=== PATIENT | female | born 1965 | race Caucasian/White ===

== ENCOUNTER → 2016-11-27 | Day surgery (SDC) | payer OTHER ==
[~2016-11-27] VITALS: Ht 147.3 cm; Wt 51.7 kg
[~2016-11-27] MED LIST: ALPRAZOLAM0.5 M4 PO; BENTYL10 M1 PO; CARAFATE1 GM/10 M1 PO; KEFLEX500 MG PO; NORCO 325 MG-51 TAB PO; OMEPRAZOLE40 M1 PO; PERCOCET 5-3251 EACH PO; ZOFRAN4 M2 PO
--- NOTE | 2016-11-27 11:07 | Operative Report ---
Operative/Inv Procedure Report Surgery Date: 11/27/16 Name of Procedure: Laparoscopy aspiration of hydrosalpinx fluid on the left aspiration of left ovarian cyst Pre-Operative Diagnosis: Pelvic mass pelvic pain Post-Operative Diagnosis: Left ovarian cyst left hydrosalpinx Estimated Blood Loss: 50ml to 100ml Surgeon/Pickers Material Handlers: FILIBERTO OBRIEN MD Anesthesia: general endotracheal tube Operative/Procedure Note Note: Patient was taken the operating room placed supine position after adequate anesthesia patient placed in dorsolithotomy position the vagina prepped draped fashion bladder was catheterized examination under anesthesia performed an Allis clamp and a sponge was placed into the vagina to do no the vagina is the patient had had a hysterectomy on at this point the surgeon regowned and gloved at the level of the umbilicus stab incision was made to allow for the entry of Veress needle the abdomen was inserted approximately 4 L of CO2 to liver edge dullness which point the Veress needle was removed the on incision was extended to allow for a 10 mm trocar through that sheath laparoscope was placed 2 fingerbreadths of symptoms pubis the skin was cut a stab incision was made to allow for a 5 mm trocar on at this point a peritoneal washings were obtained using normal saline the specimen was sent to pathology on at this point J-hook was used to open the hydrosalpinx and destroyed the wall hydrosalpinx the fluid was sent to pathology I the left ovarian cyst a stab incision was made with a needle I the fluid was removed and cyst was destroyed using a J-hook hemostasis was apparent pictures were taken maximal CO2 was removed from the abdomen once was removed and the abdomen under direct visualization the incision at the umbilicus was oversewn using 0 for the fascia and interrupted were used on both skin incisions of 30 Marcaine was injected underneath both incisions sterile dressings were applied the patient was awakened from anesthesia all oral instruments removed from the vagina Morejon was removed the patient was returned spine position she was awakened from anesthesia and transferred recovery room awake alert with counts correct
== END ==
LOC: STS 01:55
DX: N70.11 Chronic salpingitis (principal); N83.202 Unspecified ovarian cyst, left side
CPT/HCPCS: 88305; J0131; J0694; J2250

== ENCOUNTER 2017-01-09 18:31 | Emergency (ER) | payer OTHER ==
[~2017-01-09] VITALS: Ht 147.3 cm; Wt 49.9 kg
[~2017-01-09 18:31] MED LIST changes: -BENTYL10 M1 PO; -CARAFATE1 GM/10 M1 PO; -OMEPRAZOLE40 M1 PO; -PERCOCET 5-3251 EACH PO; -ZOFRAN4 M2 PO
--- NOTE | 2017-01-09 18:50 | ED GI/GU/ABDOMINAL COMPLAINT ---
History of Present Illness General Chief Complaint: Abdominal Pain/Flank Pain Stated Complaint: ABD PAIN X2 DAYS Source: patient, old records Exam Limitations: no limitations Vital Signs & Intake/Output Vital Signs & Intake/Output Vital Signs Date Time Temp Pulse Resp B/P Pulse O2 O2 Flow FiO2 Ox Delivery Rate 01/09 2121 96.9 64 16 118/68 98 Room Air 01/099 98 Room Air 01/09 1844 98.7 61 16 120/81 98 Room Air Room Air Allergies Coded Allergies: NO KNOWN ALLERGIES (01/09/17) Triage Note: PT TO TRIAGE WITH EPIGASTRIC BURNING FOR 2 DAYS. STATES SHE HAS A HX OF BLEEDING ULCERS. DENIES ANY BLEEDING OR DARK STOOLS. STATES PAIN BECOMES WORSE AFTER EATING WITH CONCURRENT VOMITING. Triage Nurses Notes Reviewed? yes ? n Is pt currently ? No HPI: Patient is a 51-year-old female presents complaining of epigastric pain onset on Thursday. Pain is a sharp pain, currently severe, radiates to her back. Worsens with any oral intake. Last oral intake was this morning, patient had a piece of toast which severely exacerbated her pain. Associated nausea and vomiting. Patient reports that she had intractable vomiting previously and had an endoscopy which showed an ulcer. Patient denies hematemesis, hematochezia, melena, fevers, chills. (FRANKO AUGUSTIN,MAEGAN) Reconcile Medications Alprazolam 0.5 MG TABLET 1 TAB PO AD ANXIETY (Reported) Dicyclomine Hydrochloride (Bentyl) 10 MG CAPSULE 1 CAP PO TID PUD Omeprazole 40 MG CAPSULE.DR 1 CAP PO DAILY ACID REFLUX Ondansetron HCl (Zofran) 4 MG TABLET 1 TAB PO Q6-8P PRN NAUSEA Oxycodone HCl/Acetaminophen (Percocet 5-325 MG Tablet) 5 MG-325 MG TABLET 1-2 TAB PO Q6P PRN PAIN Sucralfate (Carafate) 1 GRAM/10 ML ORAL.SUSP 10 ML PO 4 TIMES/DAY PUD 1 hour before food and bedtime (SOCORRO WU,EVAN Cheung) Past History Travel History Traveled to [place] past 21 day No Medical History Any Pertinent Medical History? see below for history Neurological: NONE EENT: NONE Cardiovascular: NONE Respiratory: NONE Gastrointestinal: GASTRIC ULCERS Hepatic: NONE Renal: NONE Musculoskeletal: NONE Psychiatric: NONE Endocrine: NONE Blood Disorders: NONE Cancer(s): NONE Surgical History Surgical History: nephrectomy Psychosocial History What is your primary language Turkmen Tobacco Use: Never used ETOH Use: denies use Illicit Drug Use: denies illicit drug use Family History Hx Contributory? No (MAEGAN FISHER) Review of Systems Review of Systems Constitutional: Denies: chills, fever. EENTM: Reports: no symptoms. Respiratory: Denies: cough, short of breath. Cardiovascular: Denies: chest pain. GI: Reports: see HPI. Genitourinary: Reports: no symptoms. Musculoskeletal: Reports: back pain. Skin: Reports: no symptoms. Neurological/Psychological: Reports: no symptoms. Hematologic/Endocrine: Reports: no symptoms. Immunologic/Allergic: Reports: no symptoms. (MAEGAN FISHER) Physical Exam Physical Exam General Appearance: alert, awake Head: atraumatic, normal appearance Eyes: Bilateral: normal appearance, PERRL, EOMI. Ears, Nose, Throat, Mouth: hearing grossly normal, moist mucous membrane Neck: normal inspection, supple, full range of motion Respiratory: normal breath sounds, chest non-tender, no respiratory distress, lungs clear Cardiovascular: regular rate/rhythm Gastrointestinal: normal bowel sounds, soft, POSITIVE Baca SIGN, EPIGASTRIC TENDERNESS. nEGATIVE mCbURNEY'S POINT TENDERNESS Back: normal inspection, normal range of motion Extremities: normal range of motion Neurologic/Psych: no motor/sensory deficits, awake, alert, oriented x 3, normal mood/affect Skin: intact, normal color, warm/dry Core Measures ACS in differential dx? No Severe Sepsis Present: No Septic Shock Present: No (MAEGAN FISHER) Progress Differential Diagnosis: AAA, AMI, bowel obstruction, cholecystitis, diverticulitis, gastritis, hepatitis, hernia, ischemic bowel, inflamm bowel dis, kidney stone, ovarian cyst, ovarian torsion, pancreatitis, PUD/GERD, perforated viscous, SBO, UTI/pyelo Diagnostic Imaging: Viewed by Me: CT Scan, Ultrasound. Discussed w/RAD: Ultrasound. Radiology Impression: PATIENT: SHALOM MILLIGAN PRESENT AGE: 51 PATIENT ACCOUNT NO: [id number] : 66 LOCATION: [facility] ORDERING PHYSICIAN: MAEGAN AUGUSTIN SERVICE DATE: 01/09/17 EXAM TYPE: US - US-LIMITED ABDOMEN EXAMINATION: US ABDOMEN LIMITED CLINICAL INFORMATION: Epigastric and right upper quadrant pain and tenderness. COMPARISON: None TECHNIQUE: CT 07/02/2013 FINDINGS: PANCREAS: The visualized proximal portion of the pancreas is unremarkable. The distal portion is obscured secondary to overlying bowel gas. LIVER: The liver demonstrates normal size, contour and echogenicity. No focal lesion or intrahepatic biliary duct dilatation. GALLBLADDER: The gallbladder is physiologically distended without evidence of stones, sludge, polyps, wall thickening or pericholecystic fluid. Negative sonographic Baca sign. COMMON BILE DUCT: Normal in caliber measuring 0.3 cm in diameter. RIGHT KIDNEY: No hydronephrosis. No renal calculi or focal parenchymal lesions. The kidney measures 10.7 cm in maximum dimension. FREE FLUID: None. IMPRESSION: No abnormality demonstrated. DICTATED BY: ELIZABETH JONES MD DATE/ TIME DICTATED:01/09/172100 TRIAGE CLINICIAN:DOT DATE/TIME TRANSCRIBED: 01/09/172100 CONFIDENTIAL, DO NOT COPY WITHOUT APPROPRIATE AUTHORIZATION. < Electronically signed in Other Vendor System> SIGNED BY: ELIZABETH JONES MD 01/09/172106, PATIENT: SHALOM MILLIGAN PRESENT AGE: 51 PATIENT ACCOUNT NO: [id number] : 66 LOCATION: [facility] ORDERING PHYSICIAN: MAEGAN AUGUSTIN SERVICE DATE: 01/09/17 EXAM TYPE: CAT - CT ABD & PELVIS W/O IV CONTRAS EXAMINATION: CT ABDOMEN AND PELVIS WITHOUT CONTRAST CLINICAL INFORMATION: Right upper quadrant and epigastric pain radiating to the back. COMPARISON: Abdomen ultrasound from 01/09/2017. CT of abdomen pelvis from 07/02/2013. TECHNIQUE: Multidetector volumetric imaging was performed from the superior aspect of the liver through the pubic symphysis. Sagittal and coronal reformatted images were obtained on the technologist's workstation. DLP: 239 mGy -cm FINDINGS: LUNG BASES: Minimal atelectasis in dependent aspect of each lower lobe. LIVER, GALLBLADDER, AND BILIARY TREE: The liver has normal in size, shape, and attenuation. No focal hepatic lesion or biliary ductal dilatation. The gallbladder is unremarkable. PANCREAS: Unremarkable. SPLEEN: Unremarkable. ADRENAL GLANDS: Unremarkable. KIDNEYS, URETERS AND BLADDER: Left kidney is surgically absent. There is no soft tissue mass within the left retroperitoneum. The right kidney has normal size, cortical thickness and attenuation. No nephrolithiasis, hydronephrosis or perinephric edema. The right ureter and urinary bladder unremarkable. GASTROINTESTINAL TRACT: Stomach is unremarkable. Loops of bowel are normal in size. Appendix is normal. No evidence of acute inflammation or obstruction along the gastrointestinal tract. No ascites or pneumoperitoneum. ABDOMINAL WALL: Unremarkable. LYMPH NODES: No pathologic sized lymph nodes within the abdomen or pelvis. VASCULAR: Abdominal aorta is normal in caliber. No retroperitoneal hematoma. PELVIC VISCERA: The uterus is absent. No adnexal masses or pelvic free fluid. OSSEOUS STRUCTURES: Unremarkable. IMPRESSION: 1. No acute imaging abnormalities within the abdomen or pelvis. 2. Status post left nephrectomy; no soft tissue mass or hematoma within the retroperitoneum. DICTATED BY: CHANELLE ADAMES MD DATE/TIME DICTATED:01/09/172153 TRIAGE CLINICIAN:DOT DATE/TIME TRANSCRIBED:01/09/172153 CONFIDENTIAL, DO NOT COPY WITHOUT APPROPRIATE AUTHORIZATION. <Electronically signed in Other Vendor System> SIGNED BY: CHANELLE ADAMES MD 01/09/172203 Initial ED EKG: normal axis, normal intervals, normal p-waves, normal QRS complex, normal sinus rhythm, no ST T wave changes Hand-Off Endorsed To: IDALMIS MCNAIR Endorsed Time: 2141 Pending: CT (MAEGAN FISHER) Plan of Care: Orders Procedure Date/time Status CT ABD & PELVIS W/O IV CONTRAS 01/09 2113 Active LIPASE 01/09 1851 Complete COMPREHENSIVE METABOLIC PANEL 01/09 185 Complete CBC WITHOUT DIFFERENTIAL 01/09 1851 Complete AMYLASE 01/09 1851 Complete EKG 01/09 1844 Active Laboratory Tests 01/09/17 2006: Anion Gap 12, Estimated GFR > 60, BUN/Creatinine Ratio 16.3, Glucose 81, Calcium 9.8, Total Bilirubin 1.2, AST 19, ALT 25, Alkaline Phosphatase 58, Total Protein 7.3, Albumin 4.3, Globulin 3.0, Albumin/Globulin Ratio 1.4, Amylase 81, Lipase 125, CBC w Diff NO MAN DIFF REQ, RBC 4.70, MCV 85.0, MCH 28.8, RDW 13.5, MPV 7.9 , Gran % 71.1, Lymphocytes % 19.7 L, Monocytes % 5.4, Eosinophils % 2.6, Basophils % 1.2, Absolute Granulocytes 6.8 H, Absolute Lymphocytes 1.9, Absolute Monocytes 0.5, Absolute Eosinophils 0.2, Absolute Basophils 0.1, PUBS MCHC 33.9 01/09/2017 8:42:17 PM: Patient reports pain continues to be severe. Discussed results of labs with patient. Awaiting results of ultrasound. 2109: Results of ultrasound discussed with patient. Patient continues with pain. CT scan ordered. 2139: Signed out to Idalmis Jeffrey PA-C with CT scan pending (MAEGAN FISHER) Departure Departure Condition: Stable Departure Forms: Customer Survey General Discharge Information (MAEGAN FISHER) Departure Disposition: HOME OR SELF CARE Clinical Impression Primary Impression: Abdominal pain Referrals: BRIGETTE ESTEVEZ (PCP/Family) HIRO GEORGES MD Additional Instructions: Take omeprazole as prescribed and Percocet for pain. Follow-up with GI doctor provided. You will will require a upper endoscopy. Return if any other concerns worsening symptoms. Please go over all results of today's visit with your primary care doctor. Contact your primary care doctor to let them know you were here in the emergency room. There may be nonspecific findings which may not be related to your visit today here in the emergency room but may require further evaluation and chronic monitoring by your primary care doctor. If you had a laceration today the chance of foreign body always remains. You should follow-up with your primary care doctor for recheck in 3-5 days for a wound check. If you had an x-ray done there is a chance that a fracture could have been missed on initial read and you should follow-up with your primary care doctor for repeat x-rays if symptoms persist. If your blood pressure was elevated here in the emergency room please have rechecked by her primary care doctor within the next 48 hours by your primary care doctor. If you were prescribed a narcotic here in the emergency room or any type of controlled substances you're not allowed to drive while taking this medication or operate any type of heavy machinery. Narcotics can make you feel lightheaded dizziness nausea and can cause constipation. You may need to pickle pumper a stool softener. Thank you for choosing [facility] emergency room. Please return to the emergency room immediately if you have any other concerns worsening of symptoms. Prescriptions: Current Visit Scripts Oxycodone HCl/Acetaminophen (Percocet 5-325 MG Tablet) 1-2 TAB PO Q6P PRN PAIN #20 TAB Omeprazole 1 CAP PO DAILY #60 CAP (IDALMIS MCNAIR) PA/HOG STOMACH PREPARER Co-Sign Statement Statement: ED Attending supervision documentation- [] I saw and evaluated the patient. I have also reviewed all the pertinent lab results and diagnostic results. I agree with the findings and the plan of care as documented in the PA's/HOG STOMACH PREPARER's documentation. [x] I have reviewed the ED Record and agree with the PA's/HOG STOMACH PREPARER's documentation. [] Additions or exceptions (if any) to the PAs/HOG STOMACH PREPARER's note and plan are summarized below: [] (SOCORRO WU,EVAN Cheung)
[2017-01-09 20:18] LABS: ABSOLUTE BASOPHIL COUNT 0.1 /CUMM (0.0-0.2); ABSOLUTE EOSINOPHIL COUNT 0.2 /CUMM (0.0-0.7); ABSOLUTE GRANULOCYTE CT 6.8 /CUMM (1.4-6.5); ABSOLUTE LYMPH COUNT 1.9 /CUMM (1.2-3.4); ABSOLUTE MONOCYTE COUNT 0.5 /CUMM (0.10-0.60); BASOPHIL % 1.2 % (0.0-2.0); EOSINOPHIL % 2.6 % (0-5); GRANULOCYTE % 71.1 % (42.2-75.2); HEMATOCRIT 39.9 % (37-47); MEAN CORPUSCULAR HGB 28.8 PG (27.0-31.0); MEAN CORPUSCULAR HGB CONC 33.9 G/DL (33.0-37.0); MEAN PLATELET VOLUME 7.9 FL (7.4-10.4); PLATELET COUNT 293 /CUMM (130-400); RBC DISTRIBUTION WIDTH 13.5 % (11.5-14.5); WHITE BLOOD CELL COUNT 9.5 /CUMM (4.8-10.8)
--- NOTE | 2017-01-09 21:07 | ULTRASOUND REPORT ---
EXAMINATION: US ABDOMEN LIMITED CLINICAL INFORMATION: Epigastric and right upper quadrant pain and tenderness. COMPARISON: None TECHNIQUE: CT 07/02/2013 FINDINGS: PANCREAS: The visualized proximal portion of the pancreas is unremarkable. The distal portion is obscured secondary to overlying bowel gas. LIVER: The liver demonstrates normal size, contour and echogenicity. No focal lesion or intrahepatic biliary duct dilatation. GALLBLADDER: The gallbladder is physiologically distended without evidence of stones, sludge, polyps, wall thickening or pericholecystic fluid. Negative sonographic Baca sign. COMMON BILE DUCT: Normal in caliber measuring 0.3 cm in diameter. RIGHT KIDNEY: No hydronephrosis. No renal calculi or focal parenchymal lesions. The kidney measures 10.7 cm in maximum dimension. FREE FLUID: None. IMPRESSION: No abnormality demonstrated.
[2017-01-09 21:21] VITALS: BP 118/68
--- NOTE | 2017-01-09 22:04 | CT SCAN REPORT ---
EXAMINATION: CT ABDOMEN AND PELVIS WITHOUT CONTRAST CLINICAL INFORMATION: Right upper quadrant and epigastric pain radiating to the back. COMPARISON: Abdomen ultrasound from 01/09/2017. CT of abdomen pelvis from 07/02/2013. TECHNIQUE: Multidetector volumetric imaging was performed from the superior aspect of the liver through the pubic symphysis. Sagittal and coronal reformatted images were obtained on the technologist's workstation. DLP: 239 mGy-cm FINDINGS: LUNG BASES: Minimal atelectasis in dependent aspect of each lower lobe. LIVER, GALLBLADDER, AND BILIARY TREE: The liver has normal in size, shape, and attenuation. No focal hepatic lesion or biliary ductal dilatation. The gallbladder is unremarkable. PANCREAS: Unremarkable. SPLEEN: Unremarkable. ADRENAL GLANDS: Unremarkable. KIDNEYS, URETERS AND BLADDER: Left kidney is surgically absent. There is no soft tissue mass within the left retroperitoneum. The right kidney has normal size, cortical thickness and attenuation. No nephrolithiasis, hydronephrosis or perinephric edema. The right ureter and urinary bladder unremarkable. GASTROINTESTINAL TRACT: Stomach is unremarkable. Loops of bowel are normal in size. Appendix is normal. No evidence of acute inflammation or obstruction along the gastrointestinal tract. No ascites or pneumoperitoneum. ABDOMINAL WALL: Unremarkable. LYMPH NODES: No pathologic sized lymph nodes within the abdomen or pelvis. VASCULAR: Abdominal aorta is normal in caliber. No retroperitoneal hematoma. PELVIC VISCERA: The uterus is absent. No adnexal masses or pelvic free fluid. OSSEOUS STRUCTURES: Unremarkable. IMPRESSION: 1. No acute imaging abnormalities within the abdomen or pelvis. 2. Status post left nephrectomy; no soft tissue mass or hematoma within the retroperitoneum.
[2017-01-09] MEDS ORDERED: OMEPRAZOLE40 M1 PO (22:24)
[2017-01-09] MEDS ORDERED: PERCOCET 5-3251 EACH PO (22:24)
== END 2017-01-09 22:56 ==
LOC: ERH 18:31
PROVIDERS: Physician Assistant
DX: R10.13 Epigastric pain (principal)
CPT/HCPCS: 74176; 93005; 93010; 96374; 96375; 96376; J2405

== ENCOUNTER 2017-01-12 16:49 | Emergency (ER) | payer OTHER ==
[~2017-01-12] VITALS: Ht 147.3 cm; Wt 49.9 kg
[~2017-01-12 16:49] MED LIST changes: +OMEPRAZOLE40 M1 PO; +PERCOCET 5-3251 EACH PO
--- NOTE | 2017-01-12 17:36 | ED GI/GU/ABDOMINAL COMPLAINT ---
History of Present Illness General Chief Complaint: Abdominal Pain/Flank Pain Stated Complaint: WAS HERE FRI FOR ABDOM PAIN-PAIN WORSE Source: patient, old records Exam Limitations: no limitations Vital Signs & Intake/Output Vital Signs & Intake/Output Vital Signs Date Time Temp Pulse Resp B/P Pulse O2 O2 Flow FiO2 Ox Delivery Rate 01/127 97.0 69 20 122/59 98 Room Air 01/12 1948 96.9 61 20 121/60 100 Room Air 01/12 1806 Room Air Room Air 01/12 1659 97.0 66 20 121/84 97 Room Air ED Intake and Output 01/13 0000 01/12 1200 Intake Total 1000 Output Total Balance 1000 Intake, IV 1000 Patient 110 lb Weight Allergies Coded Allergies: NO KNOWN ALLERGIES (01/09/17) Reconcile Medications Alprazolam 0.5 MG TABLET 1 TAB PO AD ANXIETY (Reported) Dicyclomine Hydrochloride (Bentyl) 10 MG CAPSULE 1 CAP PO TID PUD Omeprazole 40 MG CAPSULE.DR 1 CAP PO DAILY ACID REFLUX Ondansetron HCl (Zofran) 4 MG TABLET 1 TAB PO Q6-8P PRN NAUSEA Oxycodone HCl/Acetaminophen (Percocet 5-325 MG Tablet) 5 MG-325 MG TABLET 1-2 TAB PO Q6P PRN PAIN Sucralfate (Carafate) 1 GRAM/10 ML ORAL.SUSP 10 ML PO 4 TIMES/DAY PUD 1 hour before food and bedtime Triage Note: RECEIVED 51 YO FEMALE C/O MID-UPPER TO RIGHT ABDOMINAL PAIN RADIATING TO BACK, STARTED LAST THURSDAY WORSENING WITH NAUSEA AND INTERMITTENT VOMITING. PT WAS HERE THURSDAY FOR SAME AND REFERRED TO GI MD, WHO CANNOT SEE HERE UNTIL THE END OF THE MONTH. Triage Nurses Notes Reviewed? yes ? N Is pt currently ? No Onset: Gradual Duration: getting worse Timing: recent history Severity Numbers: 8 Location: epigastric Radiation: back Activities at Onset: eating HPI: Patient is a 51-year-old female who presents to emergency room with a 6 day history of gradual onset of epigastric pain. Patient was evaluated 3 days ago for similar complaints and she has been complaint of sharp stabbing severe epigastric pain that radiates to her back that worsens with by mouth intake. Patient states that she drinks or eats anything 30 minutes later she vomits it up. Last bowel movement was 2 days ago no blood no melena noted. Patient was evaluated from last emergency room visit with CT scan and blood work and ultrasound of right upper quadrant showing unremarkable acute process in which patient tried to follow up with gastrology however pain was so severe that she presented emergency room. Last Percocet was yesterday patient only use this medication once patient was compliant with the omeprazole prescribed. Denies any fevers chills chest pain and arm pain jaw pain shortness of breath cough hemoptysis leg swelling. Denies any vaginal bleeding vaginal discharge dysuria or hematuria. (HALI WALDROP) Past History Travel History Traveled to [place] past 21 day No Medical History Any Pertinent Medical History? see below for history Neurological: NONE EENT: NONE Cardiovascular: NONE Respiratory: NONE Gastrointestinal: GASTRIC ULCERS Hepatic: NONE Renal: NONE Musculoskeletal: NONE Psychiatric: NONE Endocrine: NONE Blood Disorders: NONE Cancer(s): NONE Surgical History Surgical History: hysterectomy, nephrectomy Psychosocial History What is your primary language Wolof Tobacco Use: Never used Family History Hx Contributory? No (HALI WALDROP) Review of Systems Review of Systems Constitutional: Reports: no symptoms. EENTM: Reports: no symptoms. Respiratory: Reports: see HPI. Denies: cough, short of breath. Cardiovascular: Reports: see HPI. Denies: chest pain. GI: Reports: see HPI, abdominal pain, nausea. Genitourinary: Reports: no symptoms. Musculoskeletal: Reports: no symptoms. Skin: Reports: no symptoms. Neurological/Psychological: Reports: no symptoms. Hematologic/Endocrine: Reports: no symptoms. Immunologic/Allergic: Reports: no symptoms. All Other Systems: Reviewed and Negative (HALI WALDROP) Physical Exam Physical Exam General Appearance: mild distress Gastrointestinal: normal bowel sounds, soft, MODERATE EPIGASTRIC AND RIGHT UPPER QUADRANT PAIN, NO REBOUND TENDERNESS NO PERITONEAL SIGNS NO RIGHT LOWER QUADRANT PAIN Comments: HEENT: Normal EENT exam, Neck: Supple, no lymphadenopathy, normal range of motion without pain or tenderness Back: Nontender, no CVA tenderness Cardiovascular: Regular rate and rhythms no murmurs rubs or gallops, normal JVP Respiratory: Chest nontender. No respiratory distress.breath sounds clear to auscultation bilaterally Extremity: No edema, no calf tenderness to palpation, normal and equal pulses. Neuro: Alert oriented x3, motor sensory normal, Skin: No appreciable rash on exposed skin, skin is warm and dry. Psych: Mood and affect is normal, memory and judgment is normal. Core Measures ACS in differential dx? No Severe Sepsis Present: No Septic Shock Present: No (HALI WALDROP) Progress Differential Diagnosis: AAA, AMI, appendicitis, biliary colic, bowel obstruction , colon cancer, cholecystitis, diverticulitis, endometritis, esophageal varices, gastritis, hepatitis, hernia, hemorrhoids, ischemic bowel, inflamm bowel dis, kidney stone, Erendira-Priscila tear, ovarian cyst, ovarian torsion, pancreatitis, PID/cervicitis, peptic ulcer, PUD/GERD, perforated viscous, SBO, threatened AB, UTI/pyelo Plan of Care: Orders Procedure Date/time Status TROPONIN LEVEL 01/12 1737 Complete LIPASE 01/12 1737 Complete DIRECT BILIRUBIN 01/12 1737 Complete COMPREHENSIVE METABOLIC PANEL 01/12 1737 Complete CBC WITHOUT DIFFERENTIAL 01/12 1737 Complete AMYLASE 01/12 1737 Complete EKG 01/12 1737 Active Laboratory Tests 01/12/17 1800: Anion Gap 13, Estimated GFR > 60, BUN/Creatinine Ratio 15.7, Glucose 72, Calcium 9.8, Total Bilirubin 1.6 H, Direct Bilirubin 0.5 H, AST 22, ALT 22, Alkaline Phosphatase 54, Troponin I < 0.01, Total Protein 7.7, Albumin 4.6, Globulin 3.1, Albumin/Globulin Ratio 1.5, Amylase 77, Lipase 128, CBC w Diff NO MAN DIFF REQ, RBC 5.08, MCV 85.1, MCH 28.4, RDW 12.9, MPV 8.2, Gran % 73.2, Lymphocytes % 19.3 L, Monocytes % 5.0, Eosinophils % 2.0, Basophils % 0.5, Absolute Granulocytes 5.2, Absolute Lymphocytes 1.4, Absolute Monocytes 0.4, Absolute Eosinophils 0.1, Absolute Basophils 0, PUBS MCHC 33.3 Patient had no relief of GI cocktail which she was given morphine. Blood work was showing no significant changes however patient will be obtaining ultrasound of right upper quadrant. Patient had unremarkable ultrasound and patient on reexamination was noted to be resting comfortably. Patient was administered Carafate was able tolerate PO. Patient was strongly advised to follow up with gastroenterology. Plan discharge patient had unremarkable labs afebrile nontoxic-appearing and could tolerate PLT and due to history of present illness and exam findings or suspicion of peptic ulcer disease however no right lower quadrant no concerns of appendicitis. (HALI WALDROP) Diagnostic Imaging: Viewed by Me: Ultrasound. Radiology Impression: no acute abnormality Initial ED EKG: none Comments: PATIENT: SHALOM MILLIGAN PRESENT AGE: 51 PATIENT ACCOUNT NO: [id number] : 66 LOCATION: [facility] ORDERING PHYSICIAN: HALI AUGUSTIN SERVICE DATE: 01/12/17121 EXAM TYPE: US - US-LIMITED ABDOMEN EXAMINATION: US ABDOMEN LIMITED CLINICAL INFORMATION: Nausea and mid epigastric abdominal pain. COMPARISON: CT abdomen and pelvis without contrast 01/09/2017. Right upper quadrant abdominal ultrasound 01/09/2017. TECHNIQUE: Real-time imaging of the right upper quadrant abdominal viscera. FINDINGS: PANCREAS: Normal. LIVER: Unremarkable. The liver demonstrates normal size, contour and echogenicity. No focal lesion or intrahepatic biliary duct dilatation. GALLBLADDER: Unremarkable. The gallbladder is physiologically distended without evidence of stones, sludge, polyps, wall thickening or pericholecystic fluid. COMMON BILE DUCT: Normal in caliber measuring 0.3 cm in diameter. RIGHT KIDNEY: Unremarkable. No hydronephrosis. No renal calculi or focal parenchymal lesions. The kidney measures 10.2 cm in maximum dimension. FREE FLUID: None. IMPRESSION: Unremarkable right upper quadrant abdominal ultrasound. (HALI WALDROP) Departure Departure Disposition: HOME OR SELF CARE Condition: Stable Clinical Impression Primary Impression: Epigastric pain Secondary Impressions: PUD (peptic ulcer disease) Referrals: BRIGETTE ESTEVEZ (PCP/Family) Additional Instructions: As discussed BEGIN [id number] Tylenol as directed for pain and begin the prescription of Percocet already prescribed for breakthrough pain relief. Continue your already prescribed omeprazole and begin the prescription of sucralfate as directed for your symptoms. Begin the prescription of Zofran for nausea and the prescription of Bentyl for abdominal discomfort. Prescriptions is waiting at [facility] pharmacy. Begin eating and drinking a clear liquid and bland diet to rest her bowels. Continue to avoid NSAIDs and spicy foods. Follow-up with your establish gastroenterology appointment this month. If symptoms worsen return to emergency room Departure Forms: Customer Survey General Discharge Information Prescriptions: Current Visit Scripts Sucralfate (Carafate) 10 ML PO 4 TIMES/DAY #1200 ML 1 hour before food and bedtime Dicyclomine Hydrochloride (Bentyl) 1 CAP PO TID #9 CAP Ondansetron HCl (Zofran) 1 TAB PO Q6-8P PRN NAUSEA #15 TAB (HALI WALDROP) PA/[employer] TECHNICIAN Co-Sign Statement Statement: ED Attending supervision documentation- [] I saw and evaluated the patient. I have also reviewed all the pertinent lab results and diagnostic results. I agree with the findings and the plan of care as documented in the PA's/[employer] TECHNICIAN's documentation. [X] I have reviewed the ED Record and agree with the PA's/[employer] TECHNICIAN's documentation. [] Additions or exceptions (if any) to the PAs/[employer] TECHNICIAN's note and plan are summarized below: [] (NATALIE WU,BIRDIE Wallace)
[2017-01-12 18:41] LABS: ABSOLUTE BASOPHIL COUNT 0 /CUMM (0.0-0.2); ABSOLUTE EOSINOPHIL COUNT 0.1 /CUMM (0.0-0.7); ABSOLUTE GRANULOCYTE CT 5.2 /CUMM (1.4-6.5); ABSOLUTE LYMPH COUNT 1.4 /CUMM (1.2-3.4); ABSOLUTE MONOCYTE COUNT 0.4 /CUMM (0.10-0.60); BASOPHIL % 0.5 % (0.0-2.0); GRANULOCYTE % 73.2 % (42.2-75.2); HEMATOCRIT 43.2 % (37-47); MEAN CORPUSCULAR HGB 28.4 PG (27.0-31.0); MEAN CORPUSCULAR HGB CONC 33.3 G/DL (33.0-37.0); MEAN CORPUSCULAR VOLUME 85.1 FL (81.0-99.0); MEAN PLATELET VOLUME 8.2 FL (7.4-10.4); PLATELET COUNT 327 /CUMM (130-400); RBC DISTRIBUTION WIDTH 12.9 % (11.5-14.5); RED BLOOD CELL CT 5.08 /CUMM (4.20-5.40); WHITE BLOOD CELL COUNT 7.1 /CUMM (4.8-10.8)
--- NOTE | 2017-01-12 20:48 | ULTRASOUND REPORT ---
EXAMINATION: US ABDOMEN LIMITED CLINICAL INFORMATION: Nausea and mid epigastric abdominal pain. COMPARISON: CT abdomen and pelvis without contrast 01/09/2017. Right upper quadrant abdominal ultrasound 01/09/2017. TECHNIQUE: Real-time imaging of the right upper quadrant abdominal viscera. FINDINGS: PANCREAS: Normal. LIVER: Unremarkable. The liver demonstrates normal size, contour and echogenicity. No focal lesion or intrahepatic biliary duct dilatation. GALLBLADDER: Unremarkable. The gallbladder is physiologically distended without evidence of stones, sludge, polyps, wall thickening or pericholecystic fluid. COMMON BILE DUCT: Normal in caliber measuring 0.3 cm in diameter. RIGHT KIDNEY: Unremarkable. No hydronephrosis. No renal calculi or focal parenchymal lesions. The kidney measures 10.2 cm in maximum dimension. FREE FLUID: None. IMPRESSION: Unremarkable right upper quadrant abdominal ultrasound.
[2017-01-12] MEDS ORDERED: CARAFATE1 GM/10 M1 PO (21:08)
[2017-01-12] MEDS ORDERED: ZOFRAN4 M2 PO (21:08)
[2017-01-12] MEDS ORDERED: BENTYL10 M1 PO (21:08)
[2017-01-12 21:57] VITALS: BP 122/59
== END 2017-01-12 21:59 ==
LOC: ERH 16:49
PROVIDERS: Physician Assistant
DX: K27.9 Peptic ulcer, site unspecified, unspecified as acute or chronic, without hemorrhage or perforation (principal)
CPT/HCPCS: 93005; 93010; 96374; 96375; J2405